=== PATIENT | female | born 1995 | race Caucasian/White ===

== ENCOUNTER 2017-01-20 08:11 | Emergency (ER) | payer BC ==
[2017-01-20 08:22] VITALS: BP 119/75
--- NOTE | 2017-01-20 08:40 | UC ---
Knee Pain HPI - HPI Summary HPI Summary: complaint of right knee oain tat started yesterday fell playing soccer in the street has abrasion and thinks there is a rock under the dskin denies any pain with ambulation pain is only in the skin anterior to her knee - History of Current Complaint Chief Complaint: UCLowerExtremity Stated Complaint: RIGHT KNEE COMPLAINT Time Seen by Provider: 01/20/17 08:32 Hx Obtained From: Patient Hx Last Menstrual Period: 12/27/16 - Allergies/Home Medications Allergies/Adverse Reactions: Allergies Allergy/AdvReac Type Severity Reaction Status Date / Time No Known Allergies Allergy Verified 01/20/17 08:22 Home Medications: Home Medications Norethindrone (Contraceptive) [Norethindrone] 0.35 mg PO DAILY 01/20/17 [ History Confirmed 01/20/17] PMH/Surg Hx/FS Hx/Imm Hx Previously Healthy: Yes - Surgical History Surgical History: None - Family History Known Family History: Negative: Cardiac Disease, Hypertension, Diabetes - Social History Occupation: Student Lives: With Family Alcohol Use: Weekly Substance Use Type: None Smoking Status (MU): Never Smoked Tobacco Review of Systems Constitutional: Negative Skin: Other - abrasion right knee Eyes: Negative ENT: Negative Respiratory: Negative Cardiovascular: Negative Gastrointestinal: Negative Genitourinary: Negative Motor: Negative Neurovascular: Negative Musculoskeletal: Negative Neurological: Negative Psychological: Negative All Other Systems Reviewed And Are Negative: Yes Physical Exam Triage Information Reviewed: Yes Appearance: No Pain Distress, Well-Nourished Vital Signs: Initial Vital Signs Temp 97.8 F 01/20/17 08:15 Pulse 58 01/20/17 08:15 Resp 18 01/20/17 08:15 BP 119/75 01/20/17 08:15 Pulse Ox 100 01/20/17 08:15 Vital Signs Reviewed: Yes Eyes: Positive: Conjunctiva Clear ENT: Positive: Pharynx normal, TMs normal Neck: Positive: No Lymphadenopathy Respiratory: Positive: Lungs clear, Normal breath sounds, No respiratory distress Cardiovascular: Positive: RRR, No Murmur, Pulses Normal Abdomen Description: Positive: Nontender, Soft Bowel Sounds: Positive: Present Musculoskeletal: Positive: No Edema Neurological: Positive: Alert Psychological Exam: Normal Skin: Positive: Other - right knee abrasion- foreign object within abrasion Procedures - Procedure Summary Procedure Summary: [id number] stone removed from within right knee abrasion with splinter forceps wound it=rrigated and closed with 2 steristrips Knee Pain Course/Dx - Differential Dx/Diagnosis Differential Diagnosis/HQI/PQRI: Abrasion, Foreign Body Provider Diagnoses: right knee abrasion, foreign object Discharge - Discharge Plan Condition: Stable Disposition: HOME Patient Education Materials: Abrasion (ED), Soft Tissue Foreign Body (ED) Referrals: [facility] [place] [facility] REFERRAL [Outside] Additional Instructions: please keep steristrips in place until they fall off keep skin clean and dry please return for any signs and symptoms of infection which include redness, swelling, increase in pain of fever Please review your discharge instructions. If your symptoms do not improve please call your primary care provider or return to urgent care.
== END 2017-01-20 09:12 | disposition home or self-care (01) ==
LOC: UCCORT 08:11
DX: S80.211A Abrasion, right knee, initial encounter (principal); S80.251A Superficial foreign body, right knee, initial encounter; W19.XXXA Unspecified fall, initial encounter; Y93.66 Activity, soccer; Y92.410 Unspecified street and highway as the place of occurrence of the external cause
CPT/HCPCS: 99202; G0463